=== PATIENT | female | born 1955 | race Caucasian/White ===

== ENCOUNTER 2017-08-13 10:13 | Inpatient (IN) | payer MEDICAID ==
[~2017-08-13] VITALS: Ht 160 cm; Wt 74.8 kg
[~2017-08-13 10:13] MED LIST: ALEN70TA PO; BACI-352 TP; CALC500T19 PO; CHOL200072 PO; CLON0.5T PO; DOCU-299 PO; FERR325E14 PO; KEN.025C TP; KEP500 PO; NORC10 PO; QUET100T PO; QUET300T1 PO; SERT100T PO; TOPI100T33 PO; [UNRECOGNIZED DRUG - CODE] PO; [UNRECOGNIZED DRUG - CODE] PO
[2017-08-13 10:19] VITALS: BP 127/83
--- NOTE | 2017-08-13 10:30 | NUR ---
PATIENT PRESENTS TO ED WITH LLE SWELLING/REDNESS X 6 DAYS--CAREGIVER DENIES RECENT INJURY-- LEFT HIP FX REPAIR 06/2017. DENIES N/V/D; SKIN IS PINK/WARM/DRY; AAOX4 WITH EVEN AND STEADY GAIT; LUNGS CLEAR BL; HR EVEN AND REGULAR; PT DENIES ANY FEVER, CP, SOB, OR COUGH AT THIS TIME; PATIENT STATES PAIN OF 0/10 AT THIS TIME; VSS; PATIENT POSITIONED FOR COMFORT; HOB ELEVATED; BEDRAILS UP X2; BED DOWN. ER MD MADE AWARE OF PT STATUS.
--- NOTE | 2017-08-13 11:00 | NUR ---
ATTEMPTED IV INSERT X 2 --UNSUCCESSFUL; WILL HAVE ANOTHER RN ATTEMPT
[2017-08-13 11:33] LABS: BASOPHILS # (AUTO) 0.1 K/uL (0.00-0.22); BASOPHILS % (AUTO) 0.8 % (0.0-2.0); EOSINOPHILS % (AUTO) 0.7 % (0.0-4.0); HEMATOCRIT 33.1 % (36-48); HEMOGLOBIN 10.8 g/dL (12.0-16.0); LYMPHOCYTES # (AUTO) 0.4 K/uL (2.5-16.5); LYMPHOCYTES % (AUTO) 5.9 % (20.5-51.1); MEAN CORPUSCULAR HEMOGLOBIN 31 pg (27-31); MEAN CORPUSCULAR HGB CONC 33 g/dL (33-37); MEAN CORPUSCULAR VOLUME 94 fL (80-94); MONOCYTES # (AUTO) 0.5 K/uL (0.8-1.0); MONOCYTES % (AUTO) 7.2 % (1.7-9.3); NEUTROPHILS # (AUTO) 5.6 K/uL (1.8-7.7); NEUTROPHILS % (AUTO) 85.4 % (42.2-75.2); PLATELET COUNT (AUTO) 242 K/uL (140-450); RED BLOOD CELL COUNT(AUTO) 3.52 MIL/uL (4.20-5.40); RED CELL DISTRIBUTION WIDTH 15.3 % (11.6-13.7); WHITE BLOOD COUNT (AUTO) 6.6 K/uL (4.8-10.8)
[2017-08-13 11:44] LABS: PROTHROMBIN TIME 13.9 secs (10.8-13.4)
[2017-08-13 11:45] LABS: ANION GAP 8.8 (8-16); CARBON DIOXIDE 30.1 mmol/L (21-32); CREATININE 0.6 mg/dL (0.6-1.3); POTASSIUM 3.9 mmol/L (3.5-5.1); TOTAL BILIRUBIN 0.1 mg/dL (0.0-1.0)
--- NOTE | 2017-08-13 12:21 | NUR ---
RESTING SEMI-GARCIA'S--OU CLOSED, NO S/S RESP DISTRESS---AWAITS US READ X2 SR UP---X2 CAREGIVERS AT BEDSIDE
[2017-08-13] MEDS ORDERED: hePARIN / DEXT 5% PREMIX 250 ML IV ONE ×2 (12:30→13:05)
[2017-08-13] MEDS ORDERED: HEPARIN PER PHARMACY MC PRN ×3 (12:30→15:10)
--- NOTE | 2017-08-13 13:34 | NUR ---
MEDICATED HEPARIN BOLUS 5000 UNITS IV GIVEN--- PER [place] GAONA AT [facility] MAX HEPARIN BOLUS IS 5000UNITS IV-- NOTIFIED--OKAYED TO GIVE 5K UNITS BOLUS NOW PT REMAINS AWAKE ALERT--2 CAREGIVERS REMAINS AT BEDSIDE
[2017-08-13 14:00] VITALS: BP 101/72
--- NOTE | 2017-08-13 14:00 | NUR ---
RECEIVED REPORT AND PT FROM ER NURSE, PT A/OX1 TO NAME ONLY, PT IS NON VERBAL, FLACC 0, NO S/S OF ACUTE DISTRESS, LEFT LEG SWELLING, NO PITTING EDEMA, IV PATENT AND INTACT, NO CHEST PAIN, NO RESPIRATORY DISTRESS, NO [place], PT IS INCONTINENT TO STOOL AND URINE, FALL PRECAUTIONS TAKEN, SAFETY PRECAUTIONS TAKEN, CALL LIGHT WITHIN REACH, WILL CONT TO MONITOR.
[2017-08-13] MEDS ORDERED: ONDANSETRON 4 MG/2 ML VIAL IVP PRN (15:10)
[2017-08-13] MEDS ORDERED: HYDROcodone/APAP 10/325 MG 1 TAB TAB PO PRN (15:10)
[2017-08-13] MEDS ORDERED: HYDROcodone/APAP 5/325 MG 1 TAB TAB PO PRN (15:10)
[2017-08-13] MEDS ORDERED: ACETAMINOPHEN 325 MG TAB PO PRN (15:10)
[2017-08-13] MEDS ORDERED: DOCUSATE SODIUM 100 MG GELCAP PO PRN (15:10)
[2017-08-13] MEDS: hePARIN / DEXT 5% PREMIX 250 ML IV SCH (16:44)
[2017-08-13] MEDS: WARFARIN 5 MG TAB PO SCH (16:55)
[2017-08-13] MEDS ORDERED: PHENOBARBITAL 32.4 MG PO SCH (17:00)
[2017-08-13] MEDS ORDERED: PHENobarbital 30 MG TAB PO SCH (17:00)
--- NOTE | 2017-08-13 19:16 | NUR ---
REPORT GIVEN TO NIGHT RN, PT IN STABLE CONDITION.
--- NOTE | 2017-08-13 19:20 | NUR ---
RECEIVED PT FROM KANDACE GALEANA PT AWAKE OX1 ON HEPARIN DRIP 14,000 UNITS/H; ON LEFT AC INFUSING WELL PT NOT SIGNS OF BLEEDING REMAIN STABLE AT THIS TIME, REPOSITIONED INITIAL ASSESSMENT DONE
[2017-08-13 20:00] VITALS: BP 123/56
[2017-08-13] MEDS: CYANOCOBALAMIN 100 MCG TAB PO SCH (21:00)
[2017-08-13] MEDS ORDERED: CYANOCOBALAMIN 100 MCG PO SCH (21:00)
[2017-08-13] MEDS ORDERED: TRIAMCINOLONE 0.025% CRM 15 GM TUBE TP SCH (21:00)
--- NOTE | 2017-08-13 21:30 | NUR ---
PT REPOSITIONED Q2H NOT DISTRESS NOTED MEDIC TAKEN ORDER
[2017-08-13] MEDS: clonazePAM 0.5 MG TAB PO SCH (22:11)
[2017-08-13] MEDS: FERROUS SULFATE 325 MG TABEC PO SCH (22:12)
[2017-08-13] MEDS: levETIRAcetam 500 MG TAB PO SCH (22:13)
[2017-08-13] MEDS: QUEtiapine FUMARATE 100 MG TAB PO SCH (22:14)
[2017-08-13] MEDS: CALCIUM CARBONATE 500 MG TAB PO SCH (22:14)
[2017-08-13] MEDS: TOPIRAMATE 100 MG TAB PO SCH (22:20)
--- NOTE | 2017-08-13 23:55 | NUR ---
LAB CALL TO REPORT PTT 139.2 THEN HEPARIN WILL BE HOLD FOR ONE HOUR AND WE WILL FOLLOW HEPARIN DRIIP PROTOCOL, PT REMAIN STABLE NOT SIGNS OF BLEEDING AT THIS TIME NOT SOB NOTED
[2017-08-14] VITALS: BP 135/70
--- NOTE | 2017-08-14 01:00 | NUR ---
AT 0100 AM PT STARTED 00962 UNITS/H FOLLOWING HEPARIN PROTOCOL
--- NOTE | 2017-08-14 03:35 | NUR ---
PT SLEEPING NOT DISTRESS NOTED NOT SIGNS OF BLEEDING HEPARIN DRIP INSUING WELL ON LEFT AC, REPOSITIONED Q2H
--- NOTE | 2017-08-14 05:00 | NUR ---
SPONGE BATH GIVEN , LINEN CHANGED REPOSITIONED , NOT DISTRESS NOTED
[2017-08-14] MEDS ORDERED: ALENDRONATE SODIUM 70 MG TAB PO SCH (06:00)
--- NOTE | 2017-08-14 06:24 | NUR ---
PT AWAKE ON HEPARIN DRIP ON LEFT AC INFUSING WELL AT 75778 UNITS FOR H, PENDING PTT AT 0700 AM
--- NOTE | 2017-08-14 07:35 | NUR ---
RECEIVED REPORT FROM NIGHT RN, PT AWAKE IN BED ON RA, NO S/S OF ACUTE DISTRESS, PLAN OF CARE DISCUSSED WITH PT, PT UNABLE TO VERBALIZE UNDERSTANDING, PT A/OX1 TO NAME ONLY, SAFETY PRECAUTIONS TAKEN, SEIZURE PRECAUTIONS TAKEN, IV PATENT AND INTACT, WILL CONT TO MONITOR.
[2017-08-14 08:05] LABS: ANION GAP 7.2 (8-16); CARBON DIOXIDE 30.6 mmol/L (21-32); CREATININE 0.5 mg/dL (0.6-1.3); POTASSIUM 3.8 mmol/L (3.5-5.1)
[2017-08-14 08:15] LABS: BASOPHILS # (AUTO) 0.2 K/uL (0.00-0.22); BASOPHILS % (AUTO) 2.7 % (0.0-2.0); EOSINOPHILS % (AUTO) 0.5 % (0.0-4.0); HEMATOCRIT 29.5 % (36-48); HEMOGLOBIN 9.4 g/dL (12.0-16.0); LYMPHOCYTES # (AUTO) 0.8 K/uL (2.5-16.5); LYMPHOCYTES % (AUTO) 14.5 % (20.5-51.1); MEAN CORPUSCULAR HEMOGLOBIN 30 pg (27-31); MEAN CORPUSCULAR HGB CONC 32 g/dL (33-37); MEAN CORPUSCULAR VOLUME 95 fL (80-94); MONOCYTES # (AUTO) 0.6 K/uL (0.8-1.0); MONOCYTES % (AUTO) 9.7 % (1.7-9.3); NEUTROPHILS # (AUTO) 4.2 K/uL (1.8-7.7); NEUTROPHILS % (AUTO) 72.6 % (42.2-75.2); PLATELET COUNT (AUTO) 247 K/uL (140-450); RED CELL DISTRIBUTION WIDTH 15.4 % (11.6-13.7); WHITE BLOOD COUNT (AUTO) 5.8 K/uL (4.8-10.8)
[2017-08-14] MEDS ORDERED: NON-FORMULARY ITEM (Cholecalciferol (Vitamin D3) (Vitamin D3) 2,000 IU) PO SCH (09:00)
[2017-08-14] MEDS: FERROUS SULFATE 325 MG TABEC PO SCH ×2 (09:00→21:54)
[2017-08-14] MEDS: clonazePAM 0.5 MG TAB PO SCH ×2 (09:00→21:56)
--- NOTE | 2017-08-14 09:06 | NUR ---
PT UNABLE TO TOLERATE FERROUS SULFATE, MEDICATION NOT GIVEN.
[2017-08-14] MEDS: CALCIUM CARBONATE 500 MG TAB PO SCH ×2 (09:07→22:05)
[2017-08-14] MEDS: levETIRAcetam 500 MG TAB PO SCH ×2 (09:07→21:57)
[2017-08-14] MEDS: TOPIRAMATE 100 MG TAB PO SCH ×2 (09:07→22:00)
[2017-08-14] MEDS: CYANOCOBALAMIN 100 MCG TAB PO SCH ×2 (09:08→22:06)
[2017-08-14] MEDS: PHENobarbital 30 MG TAB PO SCH ×3 (09:08→17:06)
[2017-08-14] MEDS: QUEtiapine FUMARATE 100 MG TAB PO SCH ×2 (09:08→21:57)
[2017-08-14] MEDS: CHOLECALCIFEROL 1,000 IU TAB PO SCH (09:08)
[2017-08-14] MEDS: SERTRALINE 50 MG TAB PO SCH (09:09)
--- NOTE | 2017-08-14 09:55 | NUR ---
PT TOLERATED ALL OTHER MEDS WELL, NO S/S OF ACUTE DISTERSS, WILL CONT TO MONITOR
[2017-08-14] MEDS: hePARIN / DEXT 5% PREMIX 250 ML IV SCH (10:28)
--- NOTE | 2017-08-14 10:29 | NUR ---
HEPARIN DRIP RATE CHANGED TO 10.5ML/H PER PROTOCOL, PTT 87.5.
--- NOTE | 2017-08-14 11:17 | NUR ---
CM NOTE PER ELECTRICAL ELECTRONICS ENGINEER CROW, SEND REVIEWS TO BOTH [facility] AND [facility]. PER KAIN Tovar OF [facility] PH# [phone] (OPTION 1,1,2), THERE IS NO ASSIGNED YOGA TEACHER YET BUT TO GO AHEAD AND SEND REVIEWS TO FAX# [phone]. INITIAL REVIEW FAXED TO [facility] [phone] PH# [phone] AND TO [facility] [phone] PH# [phone] OPTION 1,1,2.
[2017-08-14 12:00] VITALS: BP 134/82
--- NOTE | 2017-08-14 12:14 | NUR ---
PT RESTING IN BED ON 2LO2 VIA NC, PT DENIES PAIN, NO S/S OF ACUTE DISTRESS, SEIZURE PRECAUTIONS TAKEN, WILL CONT TO MONITOR. PT MOVED FROM 124A TO 120B.
--- NOTE | 2017-08-14 13:40 | NUR ---
PER DR PARUL VALENCIA TO BE DC, COUMADIN TO BE HELD UNTIL MORNING LABS DRAWN, DR TERAN TO BE UPDATED WITH INR AND PT RESULTS BEFORE GIVING COUMADIN.
[2017-08-14] MEDS: WARFARIN 5 MG TAB PO SCH (15:18)
[2017-08-14 16:27] VITALS: BP 141/85
--- NOTE | 2017-08-14 17:18 | NUR ---
PT AWAKE IN BED ON 2LO2 VIA NC, A/OX1, FLACC 0, NO S/S OF ACUTE DISTRESS, PT REPOSITIONED IN BED, CALL LIGHT WITHIN REACH, BED IN LOWEST POSITION, WILL CONT TO MONITOR.
--- NOTE | 2017-08-14 19:24 | NUR ---
REPORT GIVEN TO NIGHT RN, PT IN STABLE CONDITION.
--- NOTE | 2017-08-14 19:25 | NUR ---
RECD. RESTING IN BED, AWAKE, A/OX1, MENTALLY CHALLENGED. ABLE TO ANSWER QUESTIONS WITH YES OR NO BUT UNABLE TO COMMUNICATE EFFECTIVELY. RESPIRATION EVEN AND UNLABORED. ON 02 AT 2 LITERS VIA N/C. SALINE LOCK AT THE LEFT AC, G22, PATENT AND INTACT. SAFETY MEASURES ENFORCED, BED ON ALARM. PLAN OF CARE DISCUSSED, NEEDS REINFORCEMENT. DENIES PAIN 0/10.
[2017-08-14 20:00] VITALS: BP 132/67
--- NOTE | 2017-08-14 20:00 | NUR ---
Patient's Plan of Care was discussed and reviewed with PROBATION MANAGER: ELISE
--- NOTE | 2017-08-14 20:30 | NUR ---
HAD A LARGE BM, CLEANSED AND REPOSITIONED FOR COMFORT IN BED WITH PILLOWS.
--- NOTE | 2017-08-14 21:57 | NUR ---
DUE PO MEDICATIONS GIVEN, ABLE TO SWALLOW GOOD, TAKE ALL HER EVENING MEDICATIONS.
--- NOTE | 2017-08-15 | NUR ---
SLEEPING COMFORTABLY IN BED.
[2017-08-15 04:00] VITALS: BP 131/76
--- NOTE | 2017-08-15 04:00 | NUR ---
VS STABLE. COMFORTABLE IN BED. NO SOB NOTED.
[2017-08-15 06:48] LABS: BASOPHILS # (AUTO) 0.1 K/uL (0.00-0.22); BASOPHILS % (AUTO) 1.9 % (0.0-2.0); EOSINOPHILS % (AUTO) 0.3 % (0.0-4.0); HEMATOCRIT 30.3 % (36-48); HEMOGLOBIN 9.6 g/dL (12.0-16.0); LYMPHOCYTES % (AUTO) 18.1 % (20.5-51.1); MEAN CORPUSCULAR HEMOGLOBIN 30 pg (27-31); MEAN CORPUSCULAR HGB CONC 32 g/dL (33-37); MEAN CORPUSCULAR VOLUME 96 fL (80-94); MONOCYTES # (AUTO) 0.7 K/uL (0.8-1.0); MONOCYTES % (AUTO) 13.9 % (1.7-9.3); NEUTROPHILS # (AUTO) 3.4 K/uL (1.8-7.7); NEUTROPHILS % (AUTO) 65.8 % (42.2-75.2); PLATELET COUNT (AUTO) 199 K/uL (140-450); RED BLOOD CELL COUNT(AUTO) 3.17 MIL/uL (4.20-5.40); RED CELL DISTRIBUTION WIDTH 15.1 % (11.6-13.7); WHITE BLOOD COUNT (AUTO) 5.3 K/uL (4.8-10.8)
--- NOTE | 2017-08-15 07:05 | NUR ---
STILL SLEEPING IN BED, RESPIRATION EVEN AND UNLABORED. CONDITION REMAIN STABLE. SAFETY MAINTAINED DURING SHIFT. WILL ENDORSE TO AM NURSE FOR CONTINUITY OF CARE.
[2017-08-15 07:06] LABS: CARBON DIOXIDE 28.1 mmol/L (21-32); CREATININE 0.5 mg/dL (0.6-1.3); POTASSIUM 4.1 mmol/L (3.5-5.1)
--- NOTE | 2017-08-15 07:29 | NUR ---
RECEIVED REPORT FROM TABLE TENDER SLUDGE NURSE. PATIENT IS AOX4, NO SIGNS AND SYMPTOMS OF ACUTE DISTRESS NOTED AT THIS TIME. PATIENT HAS NASAL CANNULA AT 2L, RESPIRATORY EFFORT EVEN AND UNLABORED. DISCUSSED PLAN OF CARE WITH PATIENT, REINFORCEMENT NEEDED. BED IN LOWEST POSITION, BED ALARM ON, SIDE RAILS UP X2, CALL LIGHT PLACED WITHIN REACH. WILL CONTINUE TO MONITOR.
--- NOTE | 2017-08-15 07:50 | NUR ---
CRITICAL LAB VALUES RECEIVED FROM LAB: PT 40.8, INR 4.1, TROPONIN 1.154. DR. Mark DUARTE PAGED. AWAITING A CALL BACK.
[2017-08-15 07:52] LABS: PROTHROMBIN TIME 40.8 secs (10.8-13.4)
--- NOTE | 2017-08-15 08:53 | NUR ---
SPOKE WITH TAWNY FROM DR TERAN, GAVE HER THE RESULTS OF PT/INR TO GIVE TO DR TERAN. AWAITING ORDERS.
[2017-08-15] MEDS: CYANOCOBALAMIN 100 MCG TAB PO SCH (09:00)
[2017-08-15] MEDS: levETIRAcetam 500 MG TAB PO SCH (10:38)
[2017-08-15] MEDS: QUEtiapine FUMARATE 100 MG TAB PO SCH (10:39)
[2017-08-15] MEDS: PHENobarbital 30 MG TAB PO SCH ×3 (10:39→16:38)
[2017-08-15] MEDS: CALCIUM CARBONATE 500 MG TAB PO SCH (10:39)
[2017-08-15] MEDS: TOPIRAMATE 100 MG TAB PO SCH (10:39)
[2017-08-15] MEDS: SERTRALINE 50 MG TAB PO SCH (10:39)
[2017-08-15] MEDS: FERROUS SULFATE 325 MG TABEC PO SCH (10:40)
[2017-08-15] MEDS: CHOLECALCIFEROL 1,000 IU TAB PO SCH (10:40)
[2017-08-15] MEDS: clonazePAM 0.5 MG TAB PO SCH (10:48)
--- NOTE | 2017-08-15 10:54 | NUR ---
CM NOTE CONCURRENT REVIEW FAXED TO [facility] [phone] PH# [phone] AND TO [facility] [phone] PH# [phone] OPTION 1,1,2.
[2017-08-15 16:00] VITALS: BP 134/78
== END 2017-08-15 18:50 | disposition home or self-care (01) | DRG 197 ==
LOC: MED 10:13 → MTU 13:14
PROVIDERS: ADMIT Preventive Medicine Preventive Medicine/Occupational Environmental Medicine; ATTEND Preventive Medicine Preventive Medicine/Occupational Environmental Medicine
DX: I82.442 Acute embolism and thrombosis of left tibial vein (principal); E43 Unspecified severe protein-calorie malnutrition; E53.8 Deficiency of other specified B group vitamins; I82.412 Acute embolism and thrombosis of left femoral vein; E55.9 Vitamin D deficiency, unspecified; D64.9 Anemia, unspecified; M81.0 Age-related osteoporosis without current pathological fracture; F79 Unspecified intellectual disabilities; R62.50 Unspecified lack of expected normal physiological development in childhood; G40.909 Epilepsy, unspecified, not intractable, without status epilepticus; Z88.2 Allergy status to sulfonamides; Z91.010 Allergy to peanuts; Z88.1 Allergy status to other antibiotic agents; Z79.01 Long term (current) use of anticoagulants; Z79.899 Other long term (current) drug therapy; Z87.81 Personal history of (healed) traumatic fracture
CPT/HCPCS: 36415; 71010; 80048; 80053; 84484; 85025; 85610; 85730; 87081; 93005; 93971; 96374; 99285; J1644; Q0092